=== PATIENT | female | born 1970 | race Caucasian/White ===

== ENCOUNTER → 2019-02-26 | Outpatient (CLI) | payer OTHER ==
[2019-03-02 08:10] LABS: ASPERGILLUS FUMIGATUS AB Negative (Negative); AUREOBASIDIUM PULLULANS Negative (Negative); MICROPOLYSPORA FAENI AB Negative (Negative); PIGEON SERUM AB Negative (Negative); THERMOACTINOMYCES SACCHARI Negative (Negative); THERMOACTINOMYCES VULGARIS Negative (Negative)
[2019-03-03 00:06] LABS: ASPERGILLUS FLAVUS ABY Negative (Neg:<1:1); ASPERGILLUS FUMIGATUS ABY Negative (Neg:<1:1); ASPERGILLUS NIGER ABY Negative (Neg:<1:1); BLASTOMYCES ANTIBODY LEVEL Negative (Neg:<1:1); CRYPTOCOCCUS ANTIGEN SER Negative (Negative); HISTOPLASMOSIS ANTIBODY Negative (Neg:<1:1)
== END ==
LOC: M SMT 14:49
PROVIDERS: ATTEND Internal Medicine Pulmonary Disease
DX: R91.8 Other nonspecific abnormal finding of lung field (principal)

== ENCOUNTER → 2019-05-08 | Outpatient (CLI) | payer OTHER ==
--- NOTE | 2019-05-08 11:12 | PFTRPT ---
Site: [facility], [address] [place] [address], [id number] ID: [id number] Name: ROBERT RUSHING Visit Date: 05/08/2019 Second ID: [id number] Referring Doctor: TAMIA Emery, Elayne Ochoa Reviewing Doctor: Ernesto Mo MD Sander Setter: Uche HERNANDEZ RRT Age: 49 : 1970 Sex: Female Race: Height: 64.00 Inches Weight: 150.00 Lbs BSA: 1.73 Order IDs: [id number] Requested Test(s): <RESP-PFT.DLCO> Diagnosis: R91.8 test meet the ATS standards for acceptability and repeatability. Pt was given four puffs of albuterol for postbronchodilator. Review Status: Not Reviewed Pre-Bronch Post-Bronch Pred Actual %Pred Actual %Chng SPIROMETRY FVC (L) 3.57 3.79 106 3.73 -1 FEV1 (L) 2.85 2.59 90 2.73 5 FEV1/FVC (%) 81 68 84 73 6 FEF 25% (L/sec) 5.26 4.87 92 3.94 -19 FEF 50% (L/sec) 3.97 2.04 51 2.85 39 FEF 75% (L/sec) 1.48 0.73 49 0.81 11 FEF 25-75% (L/sec) 2.83 1.72 60 2.08 20 FEF Max (L/sec) 6.79 5.06 74 4.61 -8 FIVC (L) 3.71 3.68 FIF 50% (L/sec) 3.67 4.54 123 4.25 -6 FIF Max (L/sec) 4.55 4.27 -6 MVV (L/min) 98 71 72 Expiratory Time (sec) 6.87 6.50 -5 Back Extrap Vol (L) 0.12 0.09 -23 Time To FEFmax (sec) 0.125 0.145 15 LUNG VOLUMES SVC (L) 3.30 3.66 110 IC (L) 2.23 2.19 98 ERV (L) 1.07 1.47 137 TGV (L) 2.82 4.03 142 RV (Pleth) (L) 1.75 2.56 146 TLC (Pleth) (L) 5.05 6.22 123 RV/TLC (Pleth) (%) 34 41 121 DIFFUSION DLCOunc (ml/min/mmHg) 22.93 20.52 89 DLCOcor (ml/min/mmHg) 22.93 20.71 90 DL/VA (ml/min/mmHg/L) 4.54 3.72 81 VA (L) 5.05 5.57 110 BHT (sec) 9.75 IVC (L) 3.43 TLC (SB) (L) 5.72 AIRWAYS RESISTANCE Raw (cmH2O/L/s) 1.86 1.34 72 Gaw (L/s/cmH2O) 1.03 0.77 74 sRaw (cmH2O*s) 4.76 5.72 120 sGaw (1/cmH2O*s) 0.20 0.18 90 BLOOD GASES Hgb (gm/dL) 13.1
== END ==
LOC: M CARPUL 10:36
PROVIDERS: ATTEND Physician Assistant
DX: R91.8 Other nonspecific abnormal finding of lung field (principal)

== ENCOUNTER 2023-08-31 13:18 | Emergency (ER) | payer OTHER ==
[~2023-08-31] VITALS: Ht 162.6 cm; Wt 73.8 kg
[2023-08-31] MEDS ORDERED: POTA-298 (13:28)
[2023-08-31] MEDS ORDERED: MAGN400C (13:28)
[2023-08-31] MEDS ORDERED: ONDA-83 (13:28)
[2023-08-31] MEDS ORDERED: DICY-61 (13:28)
[2023-08-31 14:19] LABS: BASO % 0.6 % (0.0-1.0); EOS % 0.5 % (0.0-3.0); HEMATOCRIT 47.5 % (36.0-47.0); HEMOGLOBIN 16.5 g/dl (12.0-15.5); LYMPH # 1.5 10^3/uL (1.5-5.0); LYMPH % 22.7 % (24.0-44.0); MEAN CORPUSCULAR HEMOGLOBIN 31.5 pg (27.0-33.0); MEAN CORPUSCULAR HGB CONC 34.7 g/dl (32.0-36.5); MEAN CORPUSCULAR VOLUME 90.6 fl (80.0-96.0); MONO # 0.6 10^3/uL (0.0-0.8); MONO % 9.1 % (2.0-8.0); NEUTROPHILS # 4.3 10^3/uL (1.5-8.5); NEUTROPHILS % 66.9 % (36.0-66.0); PLATELET COUNT, AUTOMATED 368 10^3/uL (150-450); RED BLOOD COUNT 5.24 10^6/uL (4.00-5.40); WHITE BLOOD COUNT 6.4 10^3/uL (4.0-10.0)
[2023-08-31 14:42] LABS: LIPASE 30 U/L (12-53)
[2023-08-31 14:44] LABS: ALBUMIN 3.5 G/DL (3.2-5.2); ALKALINE PHOSPHATASE 112 U/L (46-116); ALT/SGPT 67 U/L (7.0-40); AST/SGOT 30 U/L (<34); BILIRUBIN,DIRECT 0.2 MG/DL (<0.4); BILIRUBIN,TOTAL 0.6 MG/DL (0.3-1.2); BLOOD UREA NITROGEN 9 MG/DL (9-23); CALCIUM LEVEL 9.1 MG/DL (8.5-10.1); CARBON DIOXIDE LEVEL 27 MMOL/L (20-31); CHLORIDE LEVEL 103 MMOL/L (98-107); CREATININE FOR GFR 0.79 MG/DL (0.55-1.30); GLOMERULAR FILTRATION RATE > 60.0 (>51); GLUCOSE, FASTING 95 MG/DL (60-100); SODIUM LEVEL 139 MMOL/L (136-145); TOTAL PROTEIN 6.5 G/DL (5.7-8.2)
[2023-08-31] MEDS: ONDANSETRON 4MG 2ML VIAL IV ONE (18:06)
[2023-08-31] MEDS: NS 1,000 ML IV ONE (18:06)
[2023-08-31] MEDS ORDERED: METR-265 PO (21:27)
[2023-08-31] MEDS: metroNIDAZOLE (FLAGYL) 500MG TABLET PO ONE (21:36)
[2023-08-31 21:43] VITALS: BP 148/85; TEMP 98.9; O2SAT 97
== END 2023-08-31 21:45 | disposition home or self-care (01) ==
LOC: M ED 13:18
DX: A07.1 Giardiasis [lambliasis] (principal); Z79.83 Long term (current) use of bisphosphonates; Z79.810 Long term (current) use of selective estrogen receptor modulators (SERMs); Z79.899 Other long term (current) drug therapy
CPT/HCPCS: 80048; 80076; 81001; 83690; 85025; 87088; 87186; 87507; 96361; 96374; 99284; J2405